=== PATIENT | female | born 1960 | race Caucasian/White ===

== ENCOUNTER → 2016-04-24 | Outpatient (CLI) | payer MEDICARE, MEDICAID | LOC: MW.CHPS 08:00 | CPT/HCPCS: 20605; 99204; J3301 ==

== ENCOUNTER 2016-05-02 08:21 | Day surgery (SDC) | payer MEDICARE, MEDICAID ==
--- NOTE | 2016-05-01 16:23 | PCM.PREANE ---
<Ian Mccurdy E - Last Filed: 05/01/16 16:19> Preanesthetic Assessment - ANESTHESIA/TRANSFUSION/FAMILY HX Anesthesia/Transfusion History: Prior Anesthesia (Complex GA) Family History of Anesthesia Reaction: No - REVIEW OF SYSTEMS Constitutional: Reports: no symptoms [employer]IREMENT PLAN SPECIALIST: Reports: no symptoms Respiratory: Reports: no symptoms Cardiovascular: Reports: no symptoms GI: Reports: no symptoms Other: Reports: none - PHYSICAL ASSESSMENT Height: 5 ft 11 in Weight: 260 lb - ALLERGIES Allergies/Adverse Reactions: Allergies Allergy/AdvReac Type Severity Reaction Status Date / Time latex Allergy Rash Verified 04/25/16 15:43 - ANESTHESIA PLAN Anesthesia Type Planned: general anesthesia, MAC - ACKNOWLEDGEMENTS Pt an appropriate candidate for the planned anesthesia: Yes Alternatives and risks of anesthesia discussed w pt/guardian: Yes Pt/Guardian understands and agree with anesthesia plan: Yes PreAnesthesia Questionnaire HEENT History: Reports: Other (see below) Other HEENT History: wears glasses Cardiovascular History: Reports: High cholesterol, Hypertension Respiratory History: Reports: Asthma, COPD, Sleep apnea Gastrointestinal History: Reports: GERD Genitourinary History: Reports: None Musculoskeletal History: Reports: Arthritis, Back pain, chronic, Fibromyalgia Neurological History: Reports: None Psychiatric History: Reports: Anxiety, Bipolar, Depression Endocrine/Metabolic History: Reports: Diabetes, type II, Obesity/BMI 30+ Hematologic History: Reports: None Immunologic History: Reports: None Oncologic (Cancer) History: Reports: None Dermatologic History: Reports: None - Infectious Disease History Infectious Disease History: Reports: None - Past Surgical History Head Surgeries/Procedures: Reports: None HEENT Surgical History: Reports: Tonsillectomy GI Surgical History: Reports: Cholecystectomy Female Surgical History: Reports: Breast biopsy, Endometrial ablation, Tubal ligation Other Female Surgeries/Procedures: hx laproscopic sling operation for stress incontinence, Neurological Surgical History: Reports: C-Spine, Lumbar spine Other Neurological Surgeries/Procedures: hx back surgery and neck surgery Dermatological Surgical History: Reports: Skin biopsy - SUBSTANCE USE Smoking Status *Q: Current Every Day Smoker Tobacco Use Within Last Twelve Months: Cigarettes Recreational Drug Use History: No - HOME MEDS Home Medications: Home Meds Albuterol [Proventil HFA] 1 - 2 puff INH ASDIRECTED PRN 04/25/16 [History] Albuterol [Ventolin HFA] 1 puff INH ASDIRECTED PRN 04/25/16 [History] Aspirin [[place] Aspirin] 81 mg PO DAILY 04/25/16 [History] Biotin 10 mg PO DAILY 04/25/16 [History] Cetirizine HCl [Allergy Relief] 10 mg PO DAILY 04/25/16 [History] Cholecalciferol (Vitamin D3) [Vitamin D3] 1,000 units PO DAILY 04/25/16 [History ] Cranberry 400 mg PO DAILY 04/25/16 [History] Cyanocobalamin (Vitamin B12) [Vitamin B12] 100 mcg PO ASDIRECTED 04/25/16 [ History] DULoxetine HCl [Duloxetine HCl] 60 mg PO BEDTIME 04/25/16 [History] Fenofibrate,Micronized [Fenofibrate] 134 mg PO DAILY 04/25/16 [History] Hydrocodone/Acetaminophen [Hydrocodon-Acetaminophn 10-325] 1 tab PO ASDIRECTED PRN 04/25/16 [History] LORazepam 1 tab PO Q8H PRN 04/25/16 [History] Lidocaine 5% 1 applic TOP TID PRN 04/25/16 [History] Lisinopril 40 mg PO DAILY 04/25/16 [History] Meloxicam 0.5 tab PO DAILY 04/25/16 [History] Metoprolol Tartrate 50 mg PO BID 04/25/16 [History] Montelukast Sodium 10 mg PO BEDTIME 04/25/16 [History] Pantoprazole Sodium 40 mg PO DAILY 04/25/16 [History] Pnv with Ca,No.72/Iron/Fa [ Vitamin Plus Low Iron] 1 tab PO DAILY [History] Pregabalin [Lyrica] 150 mg PO TID 04/25/16 [History] QUEtiapine Fumarate [Seroquel Xr] 650 mg PO BEDTIME 04/25/16 [History] atorvaSTATin Calcium [Atorvastatin Calcium] 20 mg PO DAILY 04/25/16 [History] lamoTRIgine [Lamotrigine ER] 200 mg PO ASDIRECTED 04/25/16 [History] lamoTRIgine [Lamotrigine] 150 mg PO BEDTIME 04/25/16 [History] metFORMIN HCl [Metformin HCl] 500 mg PO ASDIRECTED 04/25/16 [History] oxyCODONE HCl [Oxycodone HCl] 10 mg PO ASDIRECTED PRN 04/25/16 [History] rOPINIRole HCl [Requip Xl] 2 mg PO BEDTIME 04/25/16 [History] lamoTRIgine [Lamotrigine ER] 200 mg PO ACBREAKFAST 04/29/16 [History] - CURRENT (IN HOUSE) MEDS Current Meds: Current Medications Acetaminophen/Hydrocodone Bitart ([place] 325-5 Mg) 1 tab PO Q4H PRN PRN Reason: Pain Fentanyl (Sublimaze) 50 mcg IVPUSH .Q5MIN PRN PRN Reason: Pain Stop: 05/06/16 08:22 Lactated Ringer's (Ringers, Lactated) 1,000 mls @ 125 mls/hr IV ASDIRECTED ISAK Sodium Chloride (Saline Flush) 10 ml FLUSH ASDIRECTED PRN PRN Reason: Keep Vein Open Sodium Chloride (Saline Flush) 2.5 ml FLUSH ASDIRECTED PRN PRN Reason: Keep Vein Open Discontinued Medications Bupivacaine HCl/Epinephrine Bitart (Marcaine 0.25%/Epinephrine 1:200,000) 10 ml INJECT ONETIME ONE Stop: 05/02/16 08:01 Bupivacaine HCl/Epinephrine Bitart (Marcaine 0.25%/Epinephrine 1:200,000) Confirm Administered Dose 10 ml .ROUTE .STK-MED ONE Stop: 05/02/16 07:30 Cefazolin Sodium/Dextrose 2 gm (/ Premix) 50 mls @ 100 mls/hr IV ONETIME ONE Stop: 05/02/16 08:29 <Mayank Krishnamurthy - Last Filed: 05/02/16 09:02> Preanesthetic Assessment - ANESTHESIA/TRANSFUSION/FAMILY HX Intubation History: Unknown - REVIEW OF SYSTEMS Constitutional: Reports: no symptoms, feeling ill (right knee necessitates walker; toothache - "bad teeth") [employer]IREMENT PLAN SPECIALIST: Reports: no symptoms (sleep apnea - CPAP) Respiratory: Reports: no symptoms (COPD, asthma hx) Cardiovascular: Reports: no symptoms GI: Reports: no symptoms Other: Reports: none, depression, anxiety - PHYSICAL ASSESSMENT ASA Class: 3 Mental Status: alert & oriented x3 Airway Class: Mallampati = 3 Dentition: Reports: broken tooth/teeth, caries Thyro-Mental Finger Breadths: 3 Mouth Opening Finger Breadths: 3 ROM/Head Extension: full Other: flushed face, wears glasses - cannot see well without them; claustrophob - BLOOD Blood Available: No Product(s) Available: None - ANESTHESIA PLAN Anesthesia Type Planned: MAC
[~2016-05-02 08:21] MED LIST: Acetaminophen/HYDROcodone 325-5 MG Tab PO PRN; Bupivacaine 0.25%/EPINEPHrine 1:200,000 10 ML SDV INJECT ONE; Bupivacaine 0.25%/EPINEPHrine 1:200,000 10 ML SDV ONE; Lactated Ringers 1,000 ML IV SCH; Sodium Chloride 0.9% 10 ML Syringe FLUSH PRN; Sodium Chloride 0.9% 2.5 ML Syringe FLUSH PRN; ceFAZolin 2 GM in Premix Bag 1 BAG IV ONE; fentaNYL 100 MCG/2 ML SDV IVPUSH PRN
[2016-05-02] MEDS ORDERED: fentaNYL 100 MCG/2 ML SDV ONE (09:32)
[2016-05-02] MEDS ORDERED: Lidocaine 2% 5 ML SDV ONE (09:32)
[2016-05-02] MEDS ORDERED: Propofol 200 MG/20 ML SDV ONE (09:32)
[2016-05-02] MEDS ORDERED: Midazolam 1 MG/ML 2 ML SDV ONE (09:32)
[2016-05-02] MEDS ORDERED: ceFAZolin 1 GM Vial ONE (09:40)
[2016-05-02 09:56] LABS: CHLORIDE,CL 102 mmol/L (98-110); SODIUM,NA 138 mmol/L (136-146)
[2016-05-02] MEDS ORDERED: Rocuronium 10 MG/ML 10 ML Syringe ONE (10:34)
--- NOTE | 2016-05-02 11:45 | PCM.POSTAN ---
POST ANESTHESIA ASSESSMENT - MENTAL STATUS Mental Status: alert, oriented - RESPIRATORY Respiratory Status: respiratory rate WNL, airway patent, O2 saturation stable - CARDIOVASCULAR CV Status: pulse rate WNL, blood pressure stable - GASTROINTESTINAL GI Status: no symptoms - POST OP HYDRATION Hydration Status: adequate & stable
--- NOTE | 2016-05-02 13:03 | PCM48HPAN ---
Post Anesthesia Note - EVALUATION WITHIN 48HRS OF ANESTHETIC Vital Signs in Normal Range: Yes Patient Participated in Evaluation: Yes Respiratory Function Stable: Yes Airway Patent: Yes Cardiovascular Function Stable: Yes Hydration Status Stable: Yes Pain Control Satisfactory: Yes Nausea and Vomiting Control Satisfactory: Yes Mental Status Recovered: Yes - COMMENTS/OBSERVATIONS Free Text/Narrative:: Pt continues to be drowsy but is easily awakened and responds appropriately. Denies problems with anesthesia.
[2016-05-02 14:38] VITALS: BP 133/56
--- NOTE | 2016-05-05 09:59 | PCM.OPNOTE ---
- General Post-Op/Procedure Note Date of Surgery/Procedure: 05/02/16 Operative Procedure(s): excision of left ear basal cell - wedge excision 6cm with intermediate repair. Pre Op Diagnosis: left ear basal cell Post-Op Diagnosis: Same Anesthesia Technique: General ET tube, General LMA, Local, MAC Primary Surgeon: Rosemary Perea Equipment Monitor Phototypesetting: Elodia Harp Complications: None Condition: Good
--- NOTE | 2016-05-05 17:21 | OR ---
SURGEON: YSABEL ACOSTA MD DATE OF PROCEDURE: 05/02/2016 PREOPERATIVE DIAGNOSIS: Left ear Chondrodermatitis nodularis helicus POSTOPERATIVE DIAGNOSIS: Left ear Chondrodermatitis nodularis helicus PROCEDURE: Wedge excision of left ear, 6 cm with intermediate repair, 6 cm total length. INDICATIONS: Ms. Malik is a 55-year-old female, seen today in evaluation for a left ear lesion. It was ulcerated and exposing the cartilage. 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 This has been there for several years and causes significant pain. Risks and benefits of excision were discussed with her, and she was in agreement to proceed. Risks were including, but not limited to, bleeding, infection, damage to underlying or overlying structures, possible need for future interventions and possible scarring. PROCEDURE IN DETAILS: After informed consent was obtained and placed on the chart, the patient was brought to the operating theater and laid in supine position. After adequate LMA anesthesia was obtained, unfortunately the patient was having difficulties maintaining her respirations unless an endotracheal tube was placed. Once adequately anesthetized and safely airway was confirmed, attention was paid to time-out was completed to confirm side and site. The left ear was prepped and draped with a Betadine cleansing solution and likely basal cell was excised in a wedge fashion. A tensor excision were used to approximate the lower lobe and reapproximate the missing tissue to prevent any indentation or significant deformity to the ear. Wedge was marked at the 12 o'clock position at the superior aspect of the helix and sent for pathology. Frozen sections came back as margins negative for any involvement of the skin cancer, and the wound was meticulously hemostased, irrigated and closed using deep Monocryl stitches and a 5-0 chromic for the skin in an intermediate fashion for repair. Total length of closure was 6 cm. The wound was dressed with Bacitracin and nonstick gauze. She tolerated this well. FOLLOWUP INSTRUCTIONS: The patient will see us in approximately 1 week or sooner if any problems, questions, or concerns. HARRIS / VENUS /[id number] MTDYan
== END 2016-05-02 13:38 | disposition home or self-care (01) ==
LOC: MW.SDS 08:21
PROVIDERS: ATTEND Plastic Surgery
DX: H61.002 Unspecified perichondritis of left external ear (principal); J45.909 Unspecified asthma, uncomplicated; J44.9 Chronic obstructive pulmonary disease, unspecified; F32.9 Major depressive disorder, single episode, unspecified; F41.9 Anxiety disorder, unspecified; Z91.040 Latex allergy status; I10 Essential (primary) hypertension; G47.30 Sleep apnea, unspecified; E78.00 Pure hypercholesterolemia, unspecified; F31.9 Bipolar disorder, unspecified; E11.9 Type 2 diabetes mellitus without complications; Z79.82 Long term (current) use of aspirin; Z79.899 Other long term (current) drug therapy; Z90.49 Acquired absence of other specified parts of digestive tract; Z90.710 Acquired absence of both cervix and uterus; Z98.51 Tubal ligation status; Z98.890 Other specified postprocedural states; F17.210 Nicotine dependence, cigarettes, uncomplicated; Z78.9 Other specified health status
CPT/HCPCS: 11443; 12052; 36415; 80048; 82962; 88305; 88331; 88332; 93005; J0690; J2250; J3010; J7120; 00120; J2704

== ENCOUNTER → 2016-05-13 | Outpatient (CLI) | payer MEDICARE, MEDICAID | LOC: MW.CHORTHO 08:00 | PROVIDERS: ATTEND Orthopaedic Surgery | DX: M17.11 Unilateral primary osteoarthritis, right knee (principal) | CPT/HCPCS: 99214 ==

== ENCOUNTER → 2016-05-20 | Outpatient (CLI) | payer MEDICARE, MEDICAID | LOC: MW.MRI 11:12 | PROVIDERS: ATTEND Orthopaedic Surgery | DX: M25.561 Pain in right knee (principal) | CPT/HCPCS: 73721-RT ==

== ENCOUNTER → 2016-05-22 | Outpatient (CLI) | payer MEDICARE, MEDICAID | LOC: MW.CHPS 08:00 | PROVIDERS: ATTEND Physician Assistant | DX: Z48.817 Encounter for surgical aftercare following surgery on the skin and subcutaneous tissue (principal) ==

== ENCOUNTER → 2016-06-23 | Outpatient (CLI) | payer MEDICARE, MEDICAID | LOC: MW.CHRC 08:00 | PROVIDERS: ATTEND Family Medicine | DX: E11.65 Type 2 diabetes mellitus with hyperglycemia (principal); E78.5 Hyperlipidemia, unspecified; J44.9 Chronic obstructive pulmonary disease, unspecified; M17.11 Unilateral primary osteoarthritis, right knee | CPT/HCPCS: 99214 ==

== ENCOUNTER → 2016-07-02 | Outpatient (CLI) | payer MEDICARE, MEDICAID ==
--- NOTE | 2016-07-02 15:51 | CR ---
EXAMINATION: Right shoulder HISTORY: Pain COMPARISON: None TECHNIQUE: 3 views FINDINGS/IMPRESSION: There is no acute osseous abnormality or fracture identified. There is mild wid ening of the acromioclavicular joint which could represent mild separation. Otherwise mild acromiocl avicular and glenohumeral osteoarthritic changes are noted.
== END ==
LOC: MW.CHORTHO 07:48
PROVIDERS: ATTEND Physician Assistant
DX: M25.511 Pain in right shoulder (principal); M25.811 Other specified joint disorders, right shoulder; M19.011 Primary osteoarthritis, right shoulder
CPT/HCPCS: 73030-26-RT; 73030-RT

== ENCOUNTER → 2016-07-02 | Outpatient (CLI) | payer MEDICARE, MEDICAID ==
[2016-07-02 11:37] LABS: CHLORIDE,CL 99 mmol/L (98-110); SODIUM,NA 134 mmol/L (136-146)
== END ==
LOC: MW.CHRC 10:39
PROVIDERS: ATTEND Family Medicine
DX: E11.65 Type 2 diabetes mellitus with hyperglycemia (principal); E78.5 Hyperlipidemia, unspecified; I10 Essential (primary) hypertension; F31.9 Bipolar disorder, unspecified; M17.11 Unilateral primary osteoarthritis, right knee; M75.41 Impingement syndrome of right shoulder; M25.561 Pain in right knee; M25.511 Pain in right shoulder; M25.811 Other specified joint disorders, right shoulder; M19.011 Primary osteoarthritis, right shoulder
CPT/HCPCS: 20610; 36415; 73030; 80053; 80061; 84443; G0463; J1040

== ENCOUNTER → 2016-07-09 | Outpatient (CLI) | payer MEDICARE, MEDICAID | LOC: MW.CHFP 12:04 | PROVIDERS: ATTEND Physician Assistant | DX: N39.0 Urinary tract infection, site not specified (principal) | CPT/HCPCS: 81001; 87086; G0463 ==

== ENCOUNTER → 2016-07-23 | Outpatient (CLI) | payer MEDICARE, MEDICAID | LOC: MW.CHFP 08:00 | PROVIDERS: ATTEND Emergency Medicine | DX: NODX10 (principal) ==